=== PATIENT | female | born 2000 | race Caucasian/White ===

== ENCOUNTER 2023-02-16 13:32 | Emergency (ER) | payer OTHER, SELFPAY ==
--- NOTE | ~2023-02-16 | XR_ITS ---
EXAM: XR knee LT 3V DATE: 02/16/2023 13:59 HISTORY: left knee TWISTING injury, POSTERIOR PAIN . COMPARISON: None available. FINDINGS: Normal mineralization. No fracture or dislocation. No lytic or blastic lesion. Joint space s are maintained. No erosion or periosteal change. Small knee joint effusion. IMPRESSION: No acute osseous finding in the left knee. Reviewed, dictated and finalized at location K.
[2023-02-16 13:44] VITALS: BP 120/85; PULSE 75; RESP 12; TEMP 36.9; O2SAT 100
--- NOTE | 2023-02-16 13:56 | ED.LOWEXIN ---
HPI - Extremity Injury (Lower) General Chief Complaint: Extremity Injury, Lower Stated Complaint: knee injury Time Seen by Provider: 02/16/23 13:50 Source: patient and family Mode of arrival: ambulatory Limitations: no limitations History of Present Illness HPI Narrative: Playing volleyball, somehow twisted his left knee, denies other injuries, prior to arrival. Related Data Allergies Allergy/AdvReac Type Severity Reaction Status Date / Time amoxicillin Allergy Hives Verified 02/16/23 14:36 Review of Systems Review of Systems: All systems reviewed & are unremarkable except as noted in HPI and below Exam Narrative: General appearance: Well-developed, well-nourished Skin: Normal color Head: Normocephalic, nontraumatic Eyes: Clear conjunctiva Neck: Supple, nontender Chest and respiratory: Airway patent, no respiratory distress, no accessory muscle use Heart: Regular rate/rhythm Vascular: Normal peripheral pulses, normal capillary refill. Musculoskeletal: Mild diffuse tenderness left knee posteriorly, no bruises, no swelling, no rash, no deformity, slight limited range of motion Neurologic: Alert and oriented ?3, [employer] is normal as tested, no gross motor deficit Course Vital Signs Vital signs: Vital Signs Temperature 36.9 C 02/16/23 13:44 Pulse Rate 75 02/16/23 13:44 Respiratory Rate 12 02/16/23 13:44 Blood Pressure 120/85 02/16/23 13:44 Pulse Oximetry 100 02/16/23 13:44 Oxygen Delivery Room Air 02/16/23 13:44 Temperature 36.9 C 02/16/23 13:44 Pulse Rate 75 02/16/23 13:44 Respiratory Rate 12 02/16/23 13:44 Blood Pressure 120/85 02/16/23 13:44 Pulse Oximetry 100 02/16/23 13:44 Oxygen Delivery Room Air 02/16/23 13:44 MDM - Extremity Injury (Lower) MDM Narrative Medical decision making narrative: Left knee twist, normal x-ray, patient discharged on knee immobilizer, follow-up with orthopedic in 1 week if there is no improvement Differential Diagnosis Differential diagnosis: Likely other (Left knee sprain/strain) Imaging Data Attestation: I personally reviewed and interpreted this imaging study as follows: Radiologist's impression: Impressions Knee X-Ray 02/16/23 14:02 IMPRESSION: No acute osseous finding in the left knee. Critical Care Time Critical Care Time Critical Care Time: No Discharge Plan Discharge Clinical Impression: Left knee sprain Qualifiers: Encounter type: initial encounter Involved ligament of knee: unspecified ligament Qualified Code(s): S83.92XA - Sprain of unspecified site of left knee, initial encounter Patient Disposition: Home, Self-Care Condition: Stable Instructions: Knee Sprain (ED) Additional Instructions: Return if symptoms are worsening , call your family physician for appointment, take Tylenol as as needed for aches and pain, continue home medications., Knee immobilizer Follow-up/Referrals: Kavin Dodge MD [Physician] - 02/22/23 PHYSICIAN NOT ON STAFF,NONSTAFF [Non-Staff] - Stand Alone Forms: Work/School Release IP
== END 2023-02-16 14:59 | disposition home or self-care (01) ==
PROVIDERS: Emergency Provider Emergency Medicine
DX: S83.92XA Sprain of unspecified site of left knee, initial encounter (principal); X50.9XXA Other and unspecified overexertion or strenuous movements or postures, initial encounter; Y93.68 Activity, volleyball (beach) (court)
CPT/HCPCS: 73562; 99283